=== PATIENT | female | born 1985 | race Caucasian/White ===

== ENCOUNTER 2017-09-25 13:12 | Emergency (ER) | payer OTHER ==
[2017-09-25 13:31] VITALS: TEMP 98.8
--- NOTE | 2017-09-25 13:44 | ED.PDOC ---
History of Present Illness - General Chief Complaint: Behavioral / Psych Stated Complaint: psych clearance for hospitalization Time Seen by Provider: 09/25/17 13:41 Source: other - [facility] department Exam Limitations: clinical condition - has mental illness - History of Present Illness Initial Comments: Kesha Escobar 32 y/o female brought by the [facility] for medical clearance for admission to [facility] facility.Patient denies ongoing mediacal problems not taking any medications -prescription or over the counter. Timing/Duration: just prior to arrival Severity: moderate Associated Symptoms: other - psychosis Allergies/Adverse Reactions: Allergies NO KNOWN ALLERGY Allergy (Verified 09/25/17 13:31) Review of Systems - Review of Systems Constitutional: States: no symptoms reported EENTM: States: no symptoms reported Respiratory: States: no symptoms reported Cardiology: States: no symptoms reported Gastrointestinal/Abdominal: States: no symptoms reported Genitourinary: States: no symptoms reported Musculoskeletal: States: no symptoms reported Skin: States: no symptoms reported Neurological: States: see HPI Past Medical History (General) - Patient Medical History Hx Seizures: No Hx Stroke: No Hx Dementia: No Hx Asthma: No Hx of COPD: No Hx Cardiac Disorders: No Hx Congestive Heart Failure: No Hx Pacemaker: No Hx Hypertension: No Hx Thyroid Disease: No Hx Diabetes: No Hx Gastroesophageal Reflux: No Hx Renal Disease: No Hx of HIV: No Hx MRSA: No Surgical History: no surgical history - Vaccination History Hx Influenza Vaccination: No Hx Pneumococcal Vaccination: No - Social History Hx Tobacco Use: Yes Hx Alcohol Use: No Hx Substance Use: No Hx Substance Use Treatment: No Hx Depression: No - Activities of Daily Living Hospice Agency (if applicable):: None - Female History Patient is a Female of Child Bearing Age (10 -59 yrs old): Yes - refused answer Family Medical History - Family History Mother Family History: Unknown Physical Exam - Physical Exam General Appearance: Alert, Comfortable, No apparent distress, Well Developed, Well Nourished, Other - cooperative Eyes, Ears, Nose, Throat Exam: PERRL/EOMI, normal ENT inspection, TMs normal, pharynx normal Neck: non-tender, full range of motion, supple, normal inspection Respiratory: chest non-tender, lungs clear, normal breath sounds, no respiratory distress Cardiovascular/Chest: normal peripheral pulses, regular rate, rhythm, no murmur Peripheral Pulses: radial,right: 2+, radial,left: 2+ Gastrointestinal/Abdominal: normal bowel sounds, non tender, soft, no organomegaly Extremities Exam: non-tender, normal range of motion, no evidence of injury Neurological: calm, oriented x 3, flat Appearance: appropriate appearance, denies illness Behavior/Eye Contact/Speech: cooperative, good eye contact, normal speech Thoughts/Hallucinations: no apparent hallucination Skin Exam: normal color, warm/dry Progress - Progress Progress: 09/25/17 14:48 Last Vital Signs Temp 98.8 F 09/25/17 13:18 Pulse 82 09/25/17 14:15 Resp 20 09/25/17 14:15 BP 113/71 09/25/17 14:15 Pulse Ox 100 09/25/17 14:15 - Results/Orders Results/Orders: Laboratory Tests 09/25/17 09/25/17 09/25/17 13:59 13:59 13:59 WBC 8.3 RBC 4.43 Hgb 14.4 Hct 42.8 MCV 96.6 MCH 32.4 H MCHC 33.6 RDW 12.9 Plt Count 245 MPV 8.4 Absolute Neuts (auto) 6.50 Absolute Lymphs (auto) 1.10 Absolute Monos (auto) 0.50 Absolute Eos (auto) 0.00 Absolute Basos (auto) 0.00 Neutrophils % 78.9 H Lymphocytes % 13.7 L Monocytes % 6.4 Eosinophils % 0.4 L Basophils % 0.6 Sodium 136 Potassium 3.5 L Chloride 108 Carbon Dioxide 22 Anion Gap 9.5 L BUN 11 Creatinine 0.58 L BUN/Creatinine Ratio 19.0 Random Glucose 159 H Serum Osmolality 274.7 L Calcium 8.8 Serum HCG, Qual Negative - EKG/XRAY/CT XRAY: chest - no acute abnormalities Departure - Departure Clinical Impression: Medical clearance for psychiatric admission Time of Disposition: 14:50 Disposition: Discharge to Home or Self Care Condition: Fair Departure Forms: ED Discharge - Pt. Copy, Patient Portal Self Enrollment Additional Instructions: MEDICALLY CLEARED FO [facility] ADMISSION
--- NOTE | 2017-09-25 14:41 | RAD ---
EXAM DESCRIPTION: Chest,1 View CLINICAL HISTORY: medical clearance COMPARISON: None available FINDINGS: The cardiomediastinal silhouette is unremarkable. There is no airspace consolidation or pleural effusion. The bronchovascular markings are within normal limits, and the lungs are not hyperinflated. There is no pneumothorax or acute fracture. IMPRESSION: Negative exam. Electronically signed by: Raad Ortega MD 09/25/2017 2:40 PM [employer]
[2017-09-25 14:59] VITALS: BP 114/69; O2SAT 99
== END 2017-09-25 14:59 | disposition home or self-care (01) ==
LOC: ER 13:12
DX: Z04.6 Encounter for general psychiatric examination, requested by authority (principal); F99 Mental disorder, not otherwise specified; Z87.891 Personal history of nicotine dependence

== ENCOUNTER 2017-12-27 10:45 | Emergency (ER) | payer SELFPAY | END 2017-12-27 11:02 | disposition left against medical advice (07) | LOC: ER 10:45 | DX: Z53.21 Procedure and treatment not carried out due to patient leaving prior to being seen by health care provider (principal) ==

== ENCOUNTER → 2019-06-22 | Outpatient (CLI) | payer OTHER | LOC: LAB.O 12:25 | PROVIDERS: ATTEND Family Medicine | DX: R89.1 Abnormal level of hormones in specimens from other organs, systems and tissues (principal); F17.200 Nicotine dependence, unspecified, uncomplicated ==